=== PATIENT | female | born 1960 | race African-American/Black ===

== ENCOUNTER 2017-07-21 16:24 | Emergency (ER) | payer OTHER ==
[~2017-07-21] VITALS: Ht 162.6 cm; Wt 54.5 kg
[2017-07-21 19:32] VITALS: BP 113/75
== END 2017-07-21 20:08 | disposition home or self-care (01) ==
LOC: EMS 16:26
DX: M25.561 Pain in right knee (principal); G89.29 Other chronic pain; J45.909 Unspecified asthma, uncomplicated; Z88.0 Allergy status to penicillin; Z88.6 Allergy status to analgesic agent
CPT/HCPCS: 99283